=== PATIENT | male | born 1990 | race Caucasian/White ===

== ENCOUNTER 2018-03-16 08:42 | Emergency (ER) | payer BC ==
[~2018-03-16] VITALS: Ht 188 cm; Wt 86.4 kg
[2018-03-16] MEDS ORDERED: BACTRIM DS 8001 TAB PO (09:22)
[2018-03-16 09:49] VITALS: BP 139/77; PULSE 58; TEMP 98.1
== END 2018-03-16 09:42 | disposition home or self-care (01) ==
LOC: COL.ER 08:42
DX: L03.114 Cellulitis of left upper limb (principal)